=== PATIENT | male | born 1990 | race Caucasian/White ===

== ENCOUNTER 2022-12-21 21:21 | Emergency (ER) | payer OTHER, SELFPAY ==
[2022-12-21 21:21] VITALS: BP 129/96; PULSE 68; RESP 15; TEMP 36.5; O2SAT 100; BMI 28.0
--- NOTE | 2022-12-21 21:29 | EKG12_ITS ---
Test Reason : CP Blood Pressure : / mmHG Vent. Rate : 076 BPM Atrial Rate : 076 BPM P-R Int : 152 ms QRS Dur : 104 ms QT Int : 374 ms P-R-T Axes : 038 034 006 degrees QTc Int : 420 ms Normal sinus rhythm Normal ECG Confirmed by TRISH GARCIA, ALEKSANDAR ([id number]), commercial production editor CRISTÓBAL BINGHAM ([id number]) on 12/25/2022 12:18:38 P M Referred By: PL Confirmed By:JEANNE CHAMBERS MD
--- NOTE | 2022-12-21 21:29 | EKG12_ITS ---
Test Reason : CP Blood Pressure : / mmHG Vent. Rate : 076 BPM Atrial Rate : 076 BPM P-R Int : 152 ms QRS Dur : 104 ms QT Int : 374 ms P-R-T Axes : 038 034 006 degrees QTc Int : 420 ms Normal sinus rhythm Normal ECG Confirmed by TRISH GARCIA, ALEKSANDAR ([id number]), editor house organ CRISTÓBAL BINGHAM ([id number]) on 12/27/2022 10:46:45 A M Referred By: PL Confirmed By:JEANNE CHAMBERS MD
--- NOTE | 2022-12-21 21:35 | RAD_ITS ---
STUDY: X-RAY CHEST REASON FOR EXAM: Male, 32 years old. cp TECHNIQUE: AP portable COMPARISON: None. FINDINGS: Less than optimal inspiratory effort is seen however the lungs are clear. There is no demonstrated pleural abnormality. Normal size heart. Normal mediastinum and wil. Normal visualized pulmonary arteries. Normal visualized aortic arch and descending thoracic aorta. Normal visualized thoracic spine. Normal visualized ribs, clavicles, and shoulders. There is no demonstrated abnormality of the visualized soft tissue structures of the upper abdomen. RAD/Chest 1 View (Portable) IMPRESSION: Diminished inspiratory effort. No acute cardiopulmonary pathology Electronically Signed: Geovany Mcdonald MD at 21:59 EDT ,
--- NOTE | 2022-12-21 22:01 | EDS_ITS ---
HPI History of Present Illness Chief Complaint: Chest Pain Detail of Chief Complaint: Lower chest /epigastric pain. Informant: patient Onset/Context/Timing Onset: Today and Hours Activity at onset: gradual Timing: Intermittent Quality: Positive for Dull Current Severity: Mild Maximum Severity: Mild Worsened By: Nothing Relieved By: Nothing Associated Symptoms: Negative for Nausea, Vomiting, Diaphoresis, Dyspnea, Cough, Fever, Lightheadedness, Acid Reflux or Palpitations Narrative Narrative: 32-year-old male no seen past medical or surgical history. No cardiac history. No history of reflux. No history of pancreatitis or gallbladder disease. He is never had a DVT or PE. No recent risk factors. No travel, surgery or hospitalization. No leg pain or swelling. No hemoptysis. Patient works as a [employer]. 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 No radiation to his neck, back, jaw or left arm. States it comes and goes. No dyspnea. No nausea or diaphoresis. Is not exertional. He has not had any exertional chest pain or dyspnea last several weeks. No family history of cardiac disease at a young age nor any family history of clots. Currently is pain-free. Prior Similar Symptoms: No Recent Illness/Hospitalization: No CVD Risk Factors: Negative for Hypertension, Diabetes, Hypercholesterolemia, Family History 1' </=55 or Smoking PE Risk Factors: Negative for Recent Travel/Surgery, Recent Immobilization, Prior DVT or PE, Cancer or OCP + Smoking + >/=35 TAD Risk Factors: Negative for Marfan's Syndrome PFSH PFSH Medical History no medical history no medical history Home Medications NK 12/21/22 [History Last Taken Unknown] Allergy/AdvReac Type Severity Reaction Status Date / Time amoxicillin [From Augmentin] Allergy PT UNSURE Verified 12/21/22 21:24 OF REACTION clavulanic acid Allergy PT UNSURE Verified 12/21/22 21:24 [From Augmentin] OF REACTION Surgical History no surgical history no surgical history Social History Smoking Status: Never smoker ROS ROS ED ROS Narrative Denies recent illness. Denies recent chest pain or exertional dyspnea nor any exertional chest pain the last several weeks. Denies any leg pain or swelling. No hemoptysis. Review of Systems ROS Unobtainable: Denies due to encephalopathy Constitutional Constitutional ED: Denies chills or fever(s) Eyes Eyes: Reports none ENT ENT ED: Denies ear pain Cardiovascular Cardiovascular: Reports as per HPI and chest pain Respiratory/Chest Respiratory/Chest: Denies cough or dyspnea Gastrointestinal Gastrointestinal: Reports abdominal pain; Denies constipation, diarrhea, melena, nausea or vomiting Genitourinary Genitourinary ED: Denies dysuria or hematuria Musculoskeletal Musculoskeletal: Denies arthralgias Integumentary Denies abscess Neurologic Neurologic: Denies headache(s) Psychiatric Psychiatric: Denies anxiety Endocrine Endocrinology: Denies cold intolerance Hematologic/Lymphatic Hematologic/Lymphatic: Denies easy bleeding or easy bruising Allergic/Immunologic Allergic/Immunologic ED: Denies mouth swelling or tongue swelling EXAM Physical Exam Narrative Exam Narrative: Well-appearing 32-year-old male. at bedside. Vital signs are stable afebrile. He does not look septic, toxic or in any distress. Pulse ox 100% on room air no hypoxia. Initial blood pressure 129/96. H EENT exam unremarkable. Neck nontender no lymphadenopathy. No JVD. Lungs clear to auscultation bilaterally. Heart regular rate and rhythm rate about 70 no murmur. Chest wall is nontender. Abdomen is soft nontender. Normal bowel sounds no peritoneal signs. He points to his epigastric region but there is no signs of trauma or tenderness. There is no pulsatile mass. There is no right upper quadrant tenderness or Armenta sign. There is no hernia. Right lower quadrant is nontender. There is no peritoneal signs nor any distention. Moving all 4 extremities. Calves are nontender without edema or cords. Equal symmetrical r adial pulses. Back nontender. Neurologically is awake and alert. Is a very normal benign exam. Const Vital Signs: 12/21/22 21:21 12/21/22 21:35 Temperature 97.7 F L Temperature Source Temporal Pulse Rate 68 Respiratory Rate 15 Respiratory Effort Normal Non-Labored Blood Pressure 129/96 H Blood Pressure Mean 107 Pulse Ox 100 Oxygen Delivery Method Room Air Positive well nourished and well developed; Negative for obese, cachectic, contractures or unkempt General Appearance ED: well developed; Negative for unkempt, cachectic, contractures or pallor Nutritional Appearance: Negative for cachectic or obese HEENT Reports moist mucous membranes normocephalic and atraumatic; Negative for trauma or tenderness Eyes PERRL and EOMs intact bilaterally General Eye ED: Negative for pale conjunctiva or scleral icterus Neck no lymphadenopathy, supple and no JVD General: Negative for tenderness Chest Wall inspection of chest normal and palpation of chest normal Chest: Negative for tenderness Resp normal respiratory effort and clear to auscultation bilaterally Effort and Inspection: Negative for respiratory distress Auscultation: Negative for rales, rhonchi, wheezes or diminished lung sounds Cardio regular rate, regular rhythm, S1 normal heart sound, S2 normal heart sound and no murmurs Rate: Negative for bradycardia or tachycardic Rhythm: Negative for abnormal rhythm Peripheral Pulses: pulses 2+ throughout GI normal to inspection, nondistended, normoactive bowel sounds, soft to palpation, non-tender, non-distended and no masses; Negative for hepatosplenomegaly Auscultation: Negative for hyperactive bowel sounds Palpation: Negative for splenomegaly or mass Back/Spine no CVA tenderness and no thoracic nor lumbar tenderness General Back: Negative for CVA tenderness Cervical Spine: Negative for cervical spine tenderness Extremity General Extremety ED: Negative for edema, pulses abnormal or tenderness General Extremity: Negative for edema or pulses abnormal Neuro oriented x3, CN's II-XII intact bilaterally and no sensory deficits noted Sensorium / Orientation: awake, alert, oriented to person, oriented to place and oriented to time; Negative for confused, lethargic or stuporous Motor Exam: strength 5/5 throughout; Negative for general weakness or strength abnormal Psych mental status grossly normal Appearance: Negative for unkempt Attitude: No agitated Mood & Affect: Negative for depressed, anxious or tearful Skin no rashes or lesions noted and no wounds General Skin Exam: Negative for jaundice or pallor Rashes: No rashes noted Trauma: Negative for abrasion or laceration Heart Score History: Slightly/Non-Suspicious ECG: Normal Age: </= 45 years Risk Factors: No Risk Factors Troponin: </= Normal Limit Score: 0 MDM MDM MDM Narrative Medical decision making narrative: Well-appearing 32-year-old with epigastric/lower sternal discomfort currently pain-free. Normal vital signs. Normal exam. No reproducible abdominal or chest pain. Does not sound cardiac. It is nonexertional. He has no history or risk factors for DVT or PE or significant family history. This may be gastric but currently is pain-free. Will undergo a cardiac work-up along with a lipase and liver enzymes. Clinically I do not think this is pancreatitis. I do not think it is from gallbladder or liver disease. Repeat exam at 10:58 PM patient is doing well. We went over all his test results including his normal lab work. Chest x-ray and EKG. He is pain-free. Repeat exam is unchanged. He will be discharged home. Abdomen is nontender. 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 He really had not eaten much today. This may be secondary to gastric reflux. Follow-up if not improving. Return if worse. History & Record Review Discussion w/independent historian: Patient, Family and Significant other Lab Data Attestation: I reviewed the patient's lab results. Lab results narrative: CBC normal. White count 7.4. H&H 13.9 and 41. Platelets 203. Electrolytes unremarkable gap of 7. BUN 19 creatinine 0.7. Liver enzymes are normal. Lipase is normal at 187. Heart enzyme is 3 Labs: Laboratory Results - last 24 hr 12/21/22 12/21/22 21:37 21:37 WBC 7.4 RBC 4.69 Hgb 13.9 Hct 41.2 MCV 87.8 MCH 29.6 MCHC 33.7 RDW Std Deviation 41.2 RDW Coeff of Jermaine 12.8 Plt Count 203 MPV 10.0 Immature Gran % (Auto) 0.300 Neut % (Auto) 48.7 Lymph % (Auto) 34.8 [place] % (Auto) 8.3 Eos % (Auto) 7.4 H Baso % (Auto) 0.5 Absolute Neuts (auto) 3.6 Absolute Lymphs (auto) 2.59 Nucleated RBC % 0 Sodium 139 Potassium 3.7 Chloride 106 Carbon Dioxide 26.0 Anion Gap 7 BUN 19 H Creatinine 0.78 Estim Creat Clear Calc 147.49 Est GFR (MDRD) Af Amer 151 Est GFR (MDRD) Non-Af 125 BUN/Creatinine Ratio 24.5 H Glucose 104 Calcium 8.5 Total Bilirubin 0.40 AST 40 H ALT 54 Alkaline Phosphatase 48 Troponin I High Sens 3 Total Protein 7.1 Albumin 4.1 Globulin 3.0 Albumin/Globulin Ratio 1.4 Lipase 187 Radiography Chest X-Ray - ED: 1 View, Read by ED Physician, Read by Radiologist, Heart, Lungs, Mediastinum, Bony Structures and No Acute Disease Diagnostic Testing: Clinical Impression(s) from Imaging Studies Chest X-Ray 12/21/22 21:35 IMPRESSION: Diminished inspiratory effort. No acute cardiopulmonary pathology Electronically Signed: Geovany Mcdonald MD at 21:59 EDT Reading Location ID and State: [address] [place] [address] , Service support , Chest x-ray, portable, single view, interpreted both by myself and the radiologist shows no acute abnormality. Rhythm Strip Rhythm Strip: Sinus Rhythm Ectopy: None EKG Initial EKG: Attestation: I personally reviewed and interpreted this EKG as follows: Interpretation: Sinus Rhythm and No Acute Injury Pattern Comments: Normal sinus rhythm rate of 76 no acute signs of AK or ischemia. Prior EKG tracings: not available for review Prior: No Prior Differential Diagnosis Differential Diagnosis: Patient with atypical epigastric versus lower chest pain. Clinically does not sound cardiac. He has no risk factors for DVT or PE. He has no swelling in his calves. He has normal pulse ox of 100%. Clinically this does not sound cardiac. Does not sound like a PE. It may be epigastric sepsis abdominal pain. His abdominal exam is benign. He does not need any imaging of his abdomen at this time. His chest x-ray is negative. Discharge Plan Triage Chief Complaint: Chest Pain ED Provider: John Bass Dx/Rx/DC Orders Clinical Impression: Abdominal pain Instructions: Abdominal Pain Prescriptions: No Action NK Primary Care Provider: Dinah Mathur Referrals: Dinah Mathur MD [Primary Care Provider] - 3-5 Days if not improving Activity Restrictions/Additional Instructions: Clinically most likely this is GI related either reflux or like inflammation of the stomach like a gastritis. Does not sound cardiac. All his labs, EKG and chest x-ray were unremarkable. Tums for any discomfort. And/or Pepcid or Protonix. Follow-up with your doctor if not improving. Return if feeling a lot worse. Disposition Disposition: Home, Self Care
[2022-12-21 22:32] LABS: Absolute Lymphocyte Count 2.59 X10^3/uL (0.83-4.51); Absolute Neutrophil Count 3.6 X10^3/uL (2.0-7.7); Basophil# 0.04 X10^3/uL; Basophil% 0.5 % (0-1); Eosinophil# 0.55 X10^3/uL; Eosinophils% 7.4 % (0-5); Hematocrit 41.2 % (40-54); Hemoglobin 13.9 g/dL (13.0-16.5); Lymphocyte # 2.59 X10^3/ul (0.83-4.51); Lymphocyte % 34.8 % (19-41); Mean Corp Hgb Conc 33.7 g/dL (32-36); Mean Corpuscular Hgb 29.6 pg (27.0-32.0); Mean Corpuscular Volume 87.8 fL (80-94); Monocyte# 0.62 X10^3/uL; Monocyte% 8.3 % (0-10); NRBC Flagged by Analyzer 0 % (0-5); Neutrophil # 3.62 X10^3/uL (2.7-7.7); Neutrophil % 48.7 % (47-70); Platelet Count 203 K/mm3 (150-450); RBC Distribution Width CV 12.8 % (11.6-14.6); RBC Distribution Width SD 41.2 fl (35.1-43.9); Red Blood Count 4.69 M/mm3 (4.6-6.2); White Blood Count 7.4 K/mm3 (4.4-11.0)
[2022-12-21 22:36] LABS: ALB/GLOB Ratio 1.4 RATIO (0.9-2.4); AST(SGOT) 40 U/L (15-37); Alanine Aminotransfer ALT/SGPT 54 U/L (16-61); Albumin, Serum 4.1 g/dL (3.2-5.0); Alkaline Phosphatase 48 U/L (45-117); Anion Gap 7 (5-15); BUN 19 mg/dL (7-18); BUN/Creat Ratio 24.5 RATIO (10-20); Calcium,Total 8.5 mg/dL (8.5-10.1); Chloride 106 mmol/L (98-107); Creatinine, Serum 0.78 mg/dL (0.70-1.30); EST Glomerular Filtration Rate 125 mL/min (>60); Est Glom Filt Rate - Afr Amer 151 mL/min (>60); Estimated Creatinine Clearance 147.49 ml/min; Glucose 104 mg/dL (74-106); Lipase 187 U/L (73-393); Potassium 3.7 mmol/L (3.5-5.1); Protein, Total 7.1 g/dL (6.4-8.2); Sodium Level 139 mmol/L (136-145); Troponin-I HS 3 pg/mL (3.0-78.0)
[2022-12-21 23:11] VITALS: BP 135/68; PULSE 81; RESP 18; O2SAT 98
== END 2022-12-21 23:13 | disposition home or self-care (01) ==
PROVIDERS: Emergency Provider Emergency Medicine; PCP Internal Medicine; Visit Provider Emergency Medicine
DX: R10.9 Unspecified abdominal pain (principal)
CPT/HCPCS: 71045; 80053; 83690; 84484; 85025; 93005; 99283; A4216

== ENCOUNTER → 2024-05-08 | Outpatient (CLI) | payer OTHER, SELFPAY ==
--- NOTE | 2024-05-08 16:01 | RAD_ITS ---
STUDY: X-RAY - RIGHT FOOT CLINICAL: Male, 33 years old. foot strain TECHNIQUE: 3 view(s) of the foot. COMPARISON: None. FINDINGS: Normal talus, calcaneus, and tarsal bones. Normal visualized subtalar, talonavicular, calcaneocuboid, tarsal and tarsometatarsal articulations. Normal metatarsi. Normal metatarsophalangeal joint of the great toe. Normal tibial and fibular sesamoid bones. Normal interphalangeal joint of the great toe. Normal phalanges of the great toe. Normal second through fifth metatarsophalangeal joints. Normal interphalangeal joints and phalanges of the lesser toes. The soft tissue structures are unremarkable. RAD/Foot min 3 Views IMPRESSION: Normal x-ray examination of the foot. Electronically Signed: Geovany Mcdonald MD at 16:19 EDT ,
== END | disposition home or self-care (01) ==
LOC: MTRAD 16:01
PROVIDERS: PCP Internal Medicine; Referring Provider Physician Assistant Surgical; Visit Provider Physician Assistant Surgical
DX: S96.911A Strain of unspecified muscle and tendon at ankle and foot level, right foot, initial encounter (principal); X58.XXXA Exposure to other specified factors, initial encounter
CPT/HCPCS: 73630